=== PATIENT | female | born 1955 | race Caucasian/White ===

== ENCOUNTER → 2018-01-23 | Outpatient (CLI) | payer OTHER ==
[2015-12-07 12:15] VITALS: BP 152/70
[~2018-01-23] MED LIST: ATOR10TA60 PO; BEE550CA PO; CHOL10002 PO; LISI10TA2 PO; URSO500T8 PO
--- NOTE | 2018-01-24 10:21 | RAD ---
MR#: [id number] Date of Study: 01/23/2018 Ordering Physician: JOVANI PINEDO, Referring Physician: JOVANI PINEDO, Tech: JOSE Hunt, RDMS, RTR APPROVED REPORT Patient Location: OUT-PATIENT Laterality:Bilateral Indications Bruit htn, smoker Doppler Spectral Velocity Analysis Right Left pCCA 89/31 cm/spCCA 68/16 cm/s mCCA 69/28 cm/smCCA 74/17 cm/s dCCA 61/23 cm/sdCCA 74/22 cm/s ECA 98/ cm/sECA 81/ cm/s pICA 61/24 cm/spICA 28/10 cm/s Keyla 88/39 cm/smICA 44/22 cm/s dICA 89/44 cm/sdICA 57/26 cm/s Vert. 49/ cm/sVert. 54/ cm/s ICA/CCA 1.00ICA/CCA 0.84 Findings Grayscale images of the bilateral common carotid arteries, internal and external carotid vessels reve al mild diffuse intimal hyperplasia with nonobstructive plaque at the level of the carotid bulbs. Spectral waveforms and color Doppler in the right internal carotid artery demonstrate 0 to less than 50% stenosis. Spectral waveforms and color Doppler in the left internal cardio artery demonstrate dim inished waveforms and this may be likely related to Doppler wave angulation but grossly 0 to less tony n 50% stenosis. Bilateral external carotid velocities are within normal limits. Bilateral vertebral velocities are antegrade. Bilateral ICA to CCA ratios are within normal limits. Critical Notification Critical Value: No <Conclusion> No high-grade flow-limiting stenosis is identified in the bilateral internal carotid arterial system Signed by : Jovani Pinedo, Electronically Approved : 01/24/2018 10:20:32
== END | disposition home or self-care (01) ==
LOC: US 12:03
PROVIDERS: ATTEND Internal Medicine Cardiovascular Disease
DX: I65.23 Occlusion and stenosis of bilateral carotid arteries (principal); I10 Essential (primary) hypertension; F17.200 Nicotine dependence, unspecified, uncomplicated
CPT/HCPCS: 93880

== ENCOUNTER → 2020-09-29 | Outpatient (CLI) | payer MEDICARE, OTHER ==
[2015-12-07 12:15] VITALS: BP 152/70
[~2020-09-29] MED LIST changes: +LISI10TA16 PO; -LISI10TA2 PO; -URSO500T8 PO; +URSO500T9 PO
--- NOTE | 2020-09-29 10:17 | RAD ---
Exam : Carotid Duplex with Grayscale Ultrasound and Spectral and Color Doppler Analysis 09/29/2020 10:0 6 AM Clinical Indications: Reason: CAROTID BRUIT / Spl. Instructions: / History: Comparison study: None available. PQRS Compliance Statement - Stenosis calculations for CT, MR and conventional angiography are based u giovanna measurement of the distal ICA diameter in accordance with the NASCET methodology. Stenosis calcu lations for carotid ultrasound studies are derived from validated velocity criteria which are known t o correlate with the NASCET methodology. Findings: The common, internal and external carotid arteries were examined by grayscale, color and spectral Do ppler ultrasound. There is relatively mild diffuse atherosclerotic vascular disease. On the right no high-grade narrowing is seen colored Doppler imaging. On the left however there is occlusion of the l eft internal carotid artery shortly beyond its origin. Vertebral artery flow appears to be in the nor mal direction bilaterally. The following are the velocities and ratios in the carotid arteries on both sides: RIGHT ICA PV: 93cm/sec RIGHT CCA PV: 105cm/sec RIGHT ICA ED: 44cm/sec RIGHT IC/CCPV: Less than 2 RIGHT VERTEBRAL: antegrade flow LEFT ICA PV: Occluded LEFT CCA PV: 84 cm/sec LEFT ICA ED: Occludedcm/sec LEFT IC/CCPV: N/A LEFT VERTEBRAL: antegrade flow <50% ICA Stenosis: PSV < 125cm/s (EDV < 40cm/s; SVR < 2.0) 50-69% ICA Stenosis: PSV < 125-229cm/s (EDV 40-99cm/s; SVR 2.0-3.9) >70% ICA Stenosis: PSV > 230cm/s (EDV >100cm/s; SVR >4.0) Impression: 1. Occlusion of the left internal carotid artery just beyond its origin. Consider CT angiography for further characterization as clinically indicated. 2. Mild elevation in right internal carotid artery end-diastolic velocity which can be associated wit h 6 50-69% stenosis. Again CT may be helpful for further characterization. Electronically signed by: Uche Khan MD (09/29/2020 10:14 AM) [id number]
--- NOTE | 2020-09-30 17:57 | CARD ---
MR#: [id number] Date of Study: 09/29/2020 Ordering Physician: JOVANI PINEDO, Referring Physician: JOVANI PINEDO, Tech: Desire Martin, [facility] APPROVED REPORT EXAM: Two-dimensional and M-mode echocardiogram with Doppler and color Doppler. Other Information Quality : AverageHR: 69bpm INDICATION Pacemaker, Bruit Surgery/Intervention Pacemaker: RISK FACTORS Hypertension Hyperlipidemia Smoking 2D DIMENSIONS RVDd3.3 (2.9-3.5cm)Left Atrium(2D)3.1 (1.6-4.0cm) IVSd0.7 (0.7-1.1cm)Aortic Root(2D)2.9 (2.0-3.7cm) LVDd4.6 (3.9-5.9cm)LVOT Diameter2.0 (1.8-2.4cm) PWd0.9 (0.7-1.1cm)LVDs2.8 (2.5-4.0cm) FS (%) 38.8 %SV68.3 ml Aortic Valve AoV Peak Darío.173.1cm/sAoV VTI39.2cm AO Peak GR.12.0mmHgLVOT Peak Darío.98.4cm/s LVOT VTI 22.55cmAO Mean GR.7mmHg STEVEN (VMAX)1.46hg8KAK (VTI)1.79cm2 Mitral Valve MV E Vfwqcbyh81.3cm/sMV DECEL [id number] MV A Xoiorfed650.7cm/sMV [id number] E/A Ratio0.8MVA (PHT)2.98cm2 TDI E/Lateral E'10.8E/Medial E'11.5 Pulmonary Valve PV Peak Dhnuiohr24.0cm/sPV Peak Grad.4mmHg Tricuspid Valve TR P. Zyaxzvle897qg/sRAP UXCMPKVR9ifDq TR Peak Gr.35xdDgHJRR88njSm Pulmonary Vein S1 Logxpgmp69.1cm/sD2 Yozcekku65.3cm/s PVa [id number] LEFT VENTRICLE The left ventricle is normal size. There is normal left ventricular wall thickness. The left ventricu lar systolic function is normal and the ejection fraction is within normal range. The Ejection Fracti on is 55-60%. There is normal LV segmental wall motion. Transmitral Doppler flow pattern is Grade I-a bnormal relaxation pattern. RIGHT VENTRICLE The right ventricle is normal size. There is normal right ventricular wall thickness. The right ventr icular systolic function is normal. ATRIA The left atrium size is normal. The right atrium size is normal. The interatrial septum is intact wit h no evidence for an atrial septal defect or patent foramen ovale as noted on 2-D or Doppler imaging. AORTIC VALVE The aortic valve is thickened but opens well. Doppler and Color Flow revealed trace aortic regurgitat ion. There is no significant aortic valvular stenosis. Calculated aortic valve area is 1.91 cm2 with maximum pressure gradient of 12 mmHg and mean pressure gradient of 7 mmHg. MITRAL VALVE The mitral valve is normal in structure and function. Mitral annular calcification is mild to moderat e. There is no evidence of mitral valve prolapse. There is no mitral valve stenosis. Doppler and Weston r-flow revealed trace mitral regurgitation. TRICUSPID VALVE The tricuspid valve is normal in structure and function. Doppler and Color Flow revealed trace tricus pid regurgitation with an estimated PAP of 26 mmHg. There is no tricuspid valve stenosis. PULMONIC VALVE The pulmonic valve is not well visualized. Doppler and Color Flow revealed trace pulmonic valvular re gurgitation. GREAT VESSELS The aortic root is normal in size. The IVC is normal in size and collapses >50% with inspiration. PERICARDIAL EFFUSION There is no evidence of significant pericardial effusion. Critical Notification Critical Value: No <Conclusion> The left ventricle is normal size. The left ventricular systolic function is normal and the ejection fraction is within normal range. The Ejection Fraction is 55-60%. Doppler and Color Flow revealed trace aortic regurgitation. There is no significant aortic valvular stenosis. Doppler and Color-flow revealed trace mitral regurgitation. Doppler and Color Flow revealed trace tricuspid regurgitation with an estimated PAP of 26 mmHg. Signed by : Poncho Muñiz MD Electronically Approved : 09/30/2020 17:56:52
== END ==
LOC: US 07:15
PROVIDERS: ATTEND Internal Medicine Cardiovascular Disease
DX: I34.0 Nonrheumatic mitral (valve) insufficiency (principal); I65.23 Occlusion and stenosis of bilateral carotid arteries; Z95.0 Presence of cardiac pacemaker
CPT/HCPCS: 93306; 93880

== ENCOUNTER → 2020-10-21 | Outpatient (CLI) | payer MEDICARE ==
[2015-12-07 12:15] VITALS: BP 152/70
[~2020-10-21] MED LIST changes: +CONTRAST GIVEN. MC PRN; +IOHEXOL 350 MG/ML 100 ML VIAL. IV ONE
[2020-10-21 09:11] LABS: CREATININE 1.1 mg/dL (0.6-1.0); GFR 49.8
--- NOTE | 2020-10-21 10:29 | RAD ---
STUDY: CT angiography of the neck INDICATION: Carotid stenosis COMPARISON: Carotid Doppler ultrasound 01/23/2018 TECHNIQUE: Axial CT imaging of the neck utilizing angiography protocol and performed after the intrav enous administration of 70 mL Omnipaque 350 contrast. P. Multiplanar reformats and 3D MIP acquisition s were obtained. Encountered areas of stenosis are measured per NASCET criteria. One or more of the following individualized dose reduction techniques were utilized for this examinat ion: 1. Automated exposure control 2. Adjustment of the mA and/or kV according to patient size 3. Use of iterative reconstruction technique. FINDINGS: Arch/Proximal Great Vessels: The arch is normal configuration. Mild narrowing of the right brachiocep halic artery origin due to noncalcified atherosclerosis. Mild narrowing of the left common carotid an d subclavian artery origins due to calcified atherosclerosis. Delayed Carotid Bifurcation/Cervical ICA: There is complete occlusion of the left internal carotid artery 1.5 cm beyond the origin through the cavernous portion. There is reconstitution of flow in the supraclin oid portion from collateral flow, although smaller in caliber than the right. This is likely chronic. The left common carotid artery is normal caliber and patent. Mild calcifications and atherosclerosis of the carotid bulb and internal/external carotid artery origins without significant narrowing. The right common, internal, and external carotid arteries are patent. There are mild calcifications at th e right carotid bulb without narrowing. Vertebral Arteries: Vertebral arteries are normal in caliber and patent. Minimal calcifications in th e intradural vertebral arteries without narrowing. Basilar, superior cerebellar, and visualized portion of the posterior cerebral arteries are patent. T he visualized portion of the middle and anterior cerebral arteries are patent. Veins: Jugular veins are patent. MISCELLANEOUS: Visualized portion of the skull base is unremarkable. Globes and orbits are intact. Scattered mucosal thickening in ethmoid air cells. Left thyroid lobe is smaller partially absent. There is mild centri lobular emphysema. Mild degenerative disc disease of the cervical spine. IMPRESSION: Complete occlusion of the left internal carotid artery 1.5 cm from the origin through th e cavernous portion. There is reconstitution of flow in the supraclinoid portion. 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
== END ==
LOC: CT 09:24
PROVIDERS: ATTEND Internal Medicine Cardiovascular Disease
DX: I65.23 Occlusion and stenosis of bilateral carotid arteries (principal)
CPT/HCPCS: 36415; 70498; 82565; 84520; Q9967

== ENCOUNTER → 2021-06-22 | Outpatient (CLI) | payer MEDICARE ==
[2015-12-07 12:15] VITALS: BP 152/70
[~2021-06-22] MED LIST changes: -CONTRAST GIVEN. MC PRN; -IOHEXOL 350 MG/ML 100 ML VIAL. IV ONE
--- NOTE | 2021-06-23 12:56 | RAD ---
MR#: [id number] Date of Study: 06/22/2021 Ordering Physician: JOVANI PINEDO, Referring Physician: JOVANI PINEDO, Tech: Dami Lopez MBA, RDMS, RVT, RDCS, RTR APPROVED REPORT Patient Location: OUT-PATIENT Indications ATHEROSCLEROSIS Duplex Results A/PTransverseLongitudinal Proximal Aorta 2.2cm2.3cm Mid Aorta 2.2cm1.7cm Distal Aorta 2.1cm1.3cm Doppler VelocityWaveform Proximal Aorta 81.0 cm/sec Aorta Mid. 74.0 cm/sec Distal Aorta 152.0 cm/sec Findings Grayscale images of abdominal aorta showed mild diffuse atherosclerosis, it measured 2.2 cm in the pr oximal segment, 2.2 cm in the mid segment and 2.1 cm in the distal segment without any evidence of an eurysmal dilatation. Color duplex and spectral waveform analysis was within normal limits with shanna l velocities and no significant stenosis. Critical Notification Critical Value: No <Conclusion> Ultrasound abdominal aorta did not show any abdominal aortic aneurysm. Signed by : Pop Bruner, Electronically Approved : 06/23/2021 12:56:37
--- NOTE | 2021-06-23 16:46 | RAD ---
MR#: [id number] Date of Study: 06/22/2021 Ordering Physician: JOVANI PINEDO, Referring Physician: JOVANI PINEDO, Tech: Dami Lopez MBA, RDMS, RVT, RDCS, RTR APPROVED REPORT Patient Location: OUT-PATIENT Laterality:Bilateral Indications CAROTID STENOSIS Doppler Spectral Velocity Analysis Right Left pCCA 84/23 cm/spCCA 68/9 cm/s mCCA 75/30 cm/smCCA 55/13 cm/s dCCA 68/30 cm/sdCCA 53/12 cm/s Bulb 72/32 cm/sBulb 69/20 cm/s ECA 101/ cm/sECA 79/ cm/s pICA 75/31 cm/spICA Keyla 91/39 cm/smICA dICA 114/52 cm/sdICA Vert. 41/ cm/sVert. 57/ cm/s Subcl. 165/ cm/sSubcl. 83/ cm/s ICA/CCA 1.36ICA/CCA Findings Grayscale images of extracranial carotid arteries bilaterally showed mild diffuse atherosclerosis. S pectral waveform and color duplex analysis showed normal velocities in bilateral common carotid and r ight internal carotid arteries suggestive of 0 to less than 50% stenosis. The left internal carotid artery showed 100% occlusion immediately after takeoff, described in prior ultrasounds and CTA of the neck. The vertebral arteries bilaterally showed antegrade flow, Critical Notification Critical Value: No <Conclusion> Carotid arterial duplex scan showed 100% occlusion of the left internal carotid artery, described in prior US/CTA. Signed by : Pop Bruner, Electronically Approved : 06/23/2021 16:46:14
== END ==
LOC: US 14:06
PROVIDERS: ATTEND Internal Medicine Cardiovascular Disease
DX: I65.22 Occlusion and stenosis of left carotid artery (principal); I70.0 Atherosclerosis of aorta
CPT/HCPCS: 76770; 93880